=== PATIENT | female | born 1990 | race Two or more races ===

== ENCOUNTER 2019-10-28 22:16 | Emergency (ER) | payer SELFPAY ==
[~2019-10-28 22:16] MED LIST: HYDR-4001 MT; LEVO500T2 MT
== END 2019-10-28 23:30 | disposition left against medical advice (07) ==
LOC: ER 22:16
DX: Z53.21 Procedure and treatment not carried out due to patient leaving prior to being seen by health care provider (principal)

== ENCOUNTER 2020-03-02 02:31 | Emergency (ER) | payer BC ==
[~2020-03-02] VITALS: Ht 157.5 cm; Wt 70.0 kg
[2020-03-02 03:32] LABS: CLARITY URINE CLEAR (CLEAR); COLOR URINE YELLOW (YELLOW); KETONES URINE NEGATIVE (NEGATIVE); LEUKOCYTE ESTERASE URINE 1+ (NEGATIVE); NITRITE URINE NEGATIVE (NEGATIVE); OCCULT BLOOD URINE NEGATIVE (NEGATIVE); PH URINE 5.5 (4.5-8.0); PROTEIN URINE NEGATIVE (NEGATIVE); SPECIFIC GRAVITY URINE 1.023 (1.005-1.030); UROBILINOGEN URINE 0.2 E.U./dL (0.2-1.0)
[2020-03-02] MEDS ORDERED: KETOROLAC 60MG/2ML VIAL IM STA (03:52)
[2020-03-02 04:18] LABS: BASOPHILS % 0.7 % (0.0-2.0); CHLORIDE 104 mEq/L (98-107); EOSINOPHILS % 0.4 % (0.0-5.0); HEMATOCRIT. 39.7 % (36.0-48.0); HEMOGLOBIN. 13.2 g/dL (12.0-16.0); LYMPHOCYTES % 9.8 % (20.0-50.0); MEAN CORPUSCULAR HEMOGLOBIN 27.2 pg (28.0-32.0); MEAN CORPUSCULAR VOLUME 81.7 fL (81.0-99.0); MEAN PLATELET VOLUME 10.2 fl (7.4-10.4); MONOCYTES % 3.4 % (2.0-8.0); NEUTROPHILS % 85.7 % (40.0-76.0); PLATELET 259 x1000/uL (130-400); RED BLOOD CELL COUNT 4.86 mill/uL (4.2-5.4); RED CELL DISTRIBUTION WIDTH 14.8 % (11.6-14.6)
[2020-03-02] MEDS ORDERED: CEPHALEXIN 250MG CAPSULE PO SCH (05:00)
[2020-03-02 05:45] VITALS: BP 118/78
== END 2020-03-02 06:00 | disposition home or self-care (01) ==
LOC: ER 02:31
DX: N39.0 Urinary tract infection, site not specified (principal); K80.80 Other cholelithiasis without obstruction
CPT/HCPCS: 36415; 80053; 81003; 81025; 83690; 85025; 96372; 99283; J1885

== ENCOUNTER 2024-11-18 19:43 | Emergency (ER) | payer BC, OTHER ==
[~2024-11-18] VITALS: Ht 157.5 cm; Wt 82.0 kg
[2024-11-18 19:54] VITALS: O2SAT 98
[2024-11-18] MEDS ORDERED: IBUP-2028 MT (22:31)
[2024-11-18] MEDS ORDERED: GABA-529 MT (22:31)
[2024-11-18 22:54] VITALS: BP 132/70; PULSE 88; RESP 19; TEMP 36.7; O2SAT 99
== END 2024-11-18 22:55 | disposition home or self-care (01) ==
LOC: ER 19:43
DX: M54.2 Cervicalgia (principal); Z90.49 Acquired absence of other specified parts of digestive tract
CPT/HCPCS: 99283